=== PATIENT | female | born 1995 | race Caucasian/White ===

== ENCOUNTER 2018-01-29 23:19 | Emergency (ER) | payer OTHER ==
[~2018-01-29] VITALS: Ht 172.7 cm; Wt 84.0 kg
[2018-01-29 23:23] VITALS: TEMP 36.5; Ht 172.7 cm; Wt 84.0 kg
[2018-01-29] MEDS ORDERED: SODIUM CHLORIDE 0.9% 1000ML 1,000 ML IV STA (23:44)
[2018-01-29] MEDS ORDERED: MoRPHine SULFATE 4 MG/ML 1 ML CARP\\VIAL IV STA (23:44)
[2018-01-29] MEDS ORDERED: ONDANSETRON INJ 2 MG/ML 2 ML VIAL IV STA (23:44)
--- NOTE | 2018-01-29 23:53 | EMERGENCY ROOM VISIT NOTE ---
History Report prepared by Brett: Nathalia Yang Under the Supervision of: Dr. Shannan Duvall M.D. First contact with patient: 23:31 Chief Complaint: ABDOMINAL PAIN Stated Complaint: ABDOMINAL PAIN History of Present Illness The patient is a 23 year old female who presents to the Emergency Room with complaints of constant severe left sided chest pain since yesterday. She states that her pain initially began with abdominal pain then migrated to her chest. She states that she was in a car for four hours [employer]. She notes the pain is worsened with deep breathing and lying down. She reports pain and swelling in left leg. She denies any cough. She denies any abdominal pain. She believes paint fumes caused her pain. She states that she was painting furniture yesterday. Per boyfriend, the patient last painted furniture several months ago. She reports smoking marijuana. She uses the Nuva ring for control. She has a history of hypothyroidism and asthma. Source of History: patient Onset: since yesterday Position: chest (left sided) Symptom Intensity: severe Timing: constant Modifying Factors (Worsening): rest (lying down), breathing (deep) Associated Symptoms: No cough, No abdominal pain Note: Notes left leg pain and swelling. Notes recent long distant trip. Review of Systems See HPI for pertinent positives & negatives. A total of 10 systems reviewed and were otherwise negative. Past Medical & Surgical Medical Problems: (1) Asthma (2) Hypothyroidism Surgical Problems: (1) H/O wisdom tooth extraction Family History Heart disease Social History Smoking Status: Never Smoker Smokeless Tobacco Use: No Alcohol Use: occasionally Drug Use: marijuana Marital Status: in relationship Housing Status: lives with significant other Occupation Status: employed Current/Historical Medications Scheduled Apixaban (Eliquis), 10 MG PO BID Citalopram Hydrobromide (Citalopram Hydrobromide), Unknown Dose PO DAILY Levothyroxine Sodium (Levothyroxine Sodium), Unknown Dose PO DAILY Scheduled PRN Hydrocodone/Acetaminophen 5MG/325MG (Sheffield 5MG/325MG), 1 TABLET PO Q4-6 hrs PRN for Pain Allergies Coded Allergies: BEE STING (Verified Allergy, Unknown, unk, 01/30/18) Physical Exam Vital Signs Date Time Temp Pulse Resp B/P (MAP) Pulse Ox O2 Delivery O2 Flow Rate FiO2 01/30/18 04:24 85 18 155/84 94 01/30/18 03:34 86 18 139/67 94 Room Air 01/30/18 02:24 91 18 135/83 96 Room Air 01/29/18 23:50 94 01/29/18 23:23 36.5 106 21 136/76 98 Room Air Physical Exam Vital signs reviewed. General: Well-appearing anxious, tearful, holding ice packs to anterior left chest, in no significant distress. HEENT: No scleral icterus, PERRLA, neck supple. Atraumatic. Cardiovascular: Regular rate and rhythm, no extra sounds. Pulmonary: Clear to auscultation bilaterally, normal work of breathing. Splinting with deep inspiration. Abdomen: Soft, nontender, nondistended, positive bowel sounds. Musculoskeletal: Atraumatic, no appreciable edema to bilateral LE. No reproducible tenderness with palpation to left chest wall. Neurologic: Patient awake alert and oriented x 3 Skin: Warm, dry, no rash Medical Decision & Procedures ER Provider Diagnostic Interpretation: Radiology results as stated below per my review and interpretation: CHEST XR: Reveals a lack of deep inspiration. Scoliosis of the thoracic spine. No significant pulmonary infiltrate or pleural effusion. No pneumothorax. Radiology results as stated below per my review and radiologist interpretation: CTA CHEST: Positive for segmental/subsegmental PE at the left lower lobe posteriorly. No saddle embolism. No definite right heart strain by CT. No pulmonary infarct. Small area of airspace disease at the inferior lingual. Consider atelectasis versus infiltrate. Subsegmental atelectasis suspected at the inferior aspect of the left lower lobe. No other consolidation. No pleural effusion or pneumothorax. No adenopathy. Heart size is normal. Aorta is unremarkable. Radiologist: Carlos Fajardo MD Study ready at 01:10 and initial results transmitted at 01:47 US VENOUS BILATERAL EXTREMITIES: No DVT. No masses or adenopathy. No priors Radiologist: Carlos Fajardo MD Study ready at 03:27 and initial results transmitted at 04:01 Laboratory Results 01/29/18 23:50 Red Blood Count 4.92, Mean Corpuscular Volume 87.2, Mean Corpuscular Hemoglobin 29.3, Mean Corpuscular Hemoglobin Concent 33.6, Mean Platelet Volume 10.0, Neutrophils (%) (Auto) 55.9, Lymphocytes (%) (Auto) 36.3, Monocytes (%) (Auto) 5.9, Eosinophils (%) (Auto) 1.5, Basophils (%) (Auto) 0.1, Neutrophils # (Auto) 8.19, Lymphocytes # (Auto) 5.31, Monocytes # (Auto) 0.86, Eosinophils # (Auto) 0.22, Basophils # (Auto) 0.02 01/29/18 23:50 Test 01/29/18 23:50 01/29/18 23:55 01/30/18 02:04 White Blood Count 14.64 K/uL (4.8-10.8) Red Blood Count 4.92 M/uL (4.2-5.4) Hemoglobin 14.4 g/dL (12.0-16.0) Hematocrit 42.9 % (37-47) Mean Corpuscular Volume 87.2 fL (80-100) Mean Corpuscular Hemoglobin 29.3 pg (25-34) Mean Corpuscular Hemoglobin Concent 33.6 g/dl (32-36) Platelet Count 266 K/uL (130-400) Mean Platelet Volume 10.0 fL (7.4-10.4) Neutrophils (%) (Auto) 55.9 % Lymphocytes (%) (Auto) 36.3 % Monocytes (%) (Auto) 5.9 % Eosinophils (%) (Auto) 1.5 % Basophils (%) (Auto) 0.1 % Neutrophils # (Auto) 8.19 K/uL (1.4-6.5) Lymphocytes # (Auto) 5.31 K/uL (1.2-3.4) Monocytes # (Auto) 0.86 K/uL (0.11-0.59) Eosinophils # (Auto) 0.22 K/uL (0-0.5) Basophils # (Auto) 0.02 K/uL (0-0.2) RDW Standard Deviation 42.7 fL (36.4-46.3) RDW Coefficient of Variation 13.4 % (11.5-14.5) Immature Granulocyte % (Auto) 0.3 % Immature Granulocyte # (Auto) 0.04 K/uL (0.00-0.02) Toxic Vacuolation 1+ Prothrombin Time 9.9 SECONDS (9.0-12.0) Prothromb Time International Ratio 0.9 (0.9-1.1) Activated Partial Thromboplast Time 26.1 SECONDS (21.0-31.0) Partial Thromboplastin Ratio 1.0 Anion Gap 9.0 mmol/L (3-11) Est Creatinine Clear Calc Drug Dose 98.5 ml/min Estimated GFR () 91.3 Estimated GFR (Non- 78.8 BUN/Creatinine Ratio 9.8 (10-20) Calcium Level 8.7 mg/dl (8.5-10.1) Total Bilirubin 0.4 mg/dl (0.2-1) Direct Bilirubin < 0.1 mg/dl (0-0.2) Aspartate Amino Transf (AST/SGOT) 10 U/L (15-37) Alanine Aminotransferase (ALT/SGPT) 20 U/L (12-78) Alkaline Phosphatase 62 U/L (45-117) Troponin I < 0.015 ng/ml (0-0.045) Total Protein 8.3 gm/dl (6.4-8.2) Albumin 3.6 gm/dl (3.4-5.0) Bedside D-Dimer > 450 ng/mlFEU (0-450) Laboratory results per my review. Medications Administered Medications (Trade) Dose Ordered Sig/Shawn Route Start Time Stop Time Status Last Admin Dose Admin Sodium Chloride 1,000 ml @ 999 mls/hr Q1H1M STAT IV 01/29/18 23:44 01/30/18 00:44 DC 01/30/18 00:02 999 MLS/HR Morphine Sulfate (MoRPHine SULFATE INJ) 4 mg NOW STAT IV 01/29/18 23:44 01/29/18 23:47 DC 01/30/18 00:03 4 MG Ondansetron HCl (Zofran Inj) 4 mg NOW STAT IV 01/29/18 23:44 01/29/18 23:47 DC 01/30/18 00:02 4 MG Morphine Sulfate (MoRPHine SULFATE INJ) 4 mg NOW STAT IV 01/30/18 01:26 01/30/18 01:27 DC 01/30/18 01:39 4 MG Miscellaneous Information (Patient'S Allergy Info Needs Entered) 1 ea NOW STAT N/A 01/30/18 01:33 01/30/18 01:34 DC 01/30/18 01:39 1 EA Heparin Sodium (Porcine) (Heparin Sq 5000 Unit/0.5ml) 10,000 unit STK-MED ONCE .ROUTE 01/30/18 02:10 01/30/18 02:11 DC 01/30/18 02:18 6,000 UNIT Apixaban (Eliquis Tab) 10 mg NOW STAT PO 01/30/18 03:28 01/30/18 03:30 DC 01/30/18 04:18 10 MG Acetaminophen/ Hydrocodone Bitart (Sheffield 5/325 Tab) 1 tab NOW STAT PO 01/30/18 03:43 01/30/18 03:45 DC 01/30/18 03:55 1 TAB Acetaminophen/ Hydrocodone Bitart (Sheffield 5/325mg Home Pack) 1 homepack UD ONCE PO 01/30/18 04:00 01/30/18 04:01 DC 01/30/18 04:18 1 HOMEPACK Ketorolac Tromethamine (Toradol Inj) 30 mg NOW STAT IV 01/30/18 04:05 01/30/18 04:06 DC 01/30/18 04:10 30 MG ECG Per My Interpretation Indication: chest pain Rate (beats per minute): 88 Rhythm: normal sinus Findings: no acute ischemic change, no ectopy, other (Poor quality baseline for interpretation. QTC 450. ) ED Course 7: Past medical records reviewed. The patient was evaluated in room C3. A complete history and physical examination was performed. 2344: Ordered Zofran 4 mg IV, Morphine Sulfate 4 mg IV, and Sodium Chloride 1, 000 ml @ 999 mls/hr IV 0126: Ordered Morphine Sulfate 4 mg IV 0148: I reassessed the patient at this time. Her pain has improved. She is resting. She removed her Nuva ring on the bed. 0210: Ordered Heparin Bolus IV 0222: I spoke with LAVERNE Bronson hospitalist. We discussed the patient's case. He evaluated the patient. He is requesting a lower extremity US. 0250: The patient was moved to room B11B. 0328: Ordered Eliquis 10 mg PO 0329: I spoke with LAVERNE Bronson hospitalist. The US showed no DVT. He recommends the patient be discharged home. 0338: I reassessed the patient at this time. She is feeling better and resting comfortably. I discussed the results and treatment plan with the patient. I answered all pertaining questions that she had. She expressed understanding and verbalized agreement. The patient will be discharged home. 0343: Ordered Sheffield 1 tab PO 0400: Ordered Sheffield 1 homepack PO Medical Decision Differential diagnoses includes acute coronary syndrome, pulmonary embolus, aortic dissection, musculoskeletal pain, pneumonia, pleural effusion, pneumothorax, gastritis, peptic ulcer disease. This patient was evaluated and appeared to be in significant discomfort. IV access was obtained and laboratory work was drawn. Patient was placed on the straddle bug and found to be in a sinus tachycardia. She was hydrated with normal saline solution and given IV morphine/Zofran for her discomfort. Patient is noted to have a normal EKG, elevated d-dimer on laboratory evaluation. Cardiac enzymes are normal. Patient did receive a second dose of IV morphine for her pain. CT angiogram of the chest was performed and is significant for left lower segmental and subsegmental PE. Hypercoagulable workup was ordered. The patient was given a dose of IV heparin and IV heparin drip was anticipated. Consultation with the hospitalist, Dr. Hill was placed. He requested ultrasounds of bilateral lower extremities, which were performed and are negative. The patient was given p.o. Sheffield. She was started on Eliquis 10 mg twice daily 7 days, 5 mg twice daily thereafter. Prescriptions were sent to the pharmacy, patient was given a home pack of both Sheffield and Eliquis. Patient was discharged by Dr. Hill. Patient expressed an understanding of the instructions and agreed. She will contact her visualization developer , Dr. Browning as soon as possible for follow up. Medication Reconcilliation Current Medication List: was personally reviewed by me Blood Pressure Screening Patient's blood pressure: Elevated blood pressure Blood pressure disposition: Referred to PCP Consults Time Called: 221 Consulting Physician: LAVERNE Bronson hospitalist I spoke with LAVERNE Bronson hospitalist. We discussed the patient's case. He evaluated the patient. He is requesting a lower extremity US. 0329: I spoke with LAVERNE Bronson hospitalist. The US showed no DVT. He recommends the patient be discharged home. Impression Primary Impression: Pulmonary embolism on left Scribe Attestation The scribe's documentation has been prepared under my direction and personally reviewed by me in its entirety. I confirm that the note above accurately reflects all work, treatment, procedures, and medical decision making performed by me. Departure Information Dispostion Home / Self-Care Prescriptions Hydrocodone/Acetaminophen 5MG/325MG (Sheffield 5MG/325MG) Tab 1 TABLET PO Q4-6 hrs Y for Pain for 7 Days, #14 TAB Prov: Shannan Duvall M.D. 01/30/18 Apixaban (ELIQUIS) 5 Mg Tab 10 MG PO BID for 7 Days, #28 TAB 10 mg twice daily for 7 days, 5 mg twice daily thereafter Prov: Shannan Duvall M.D. 01/30/18 Referrals No Doctor, Assigned (PCP) Alonso Browning D.O. Forms HOME CARE DOCUMENTATION FORM, IMPORTANT VISIT INFORMATION Patient Instructions Apixaban oral tablets, Embolism Pulmonary, My [facility] Additional Instructions Diagnosis: Left-sided pulmonary embolism Eliquis 10 mg twice daily for 7 days, then 5 mg daily thereafter. You will likely be on this medication for 3 months or more. Sheffield 1 tab every 4-6 hours as needed for pain, do not drive or take tylenol with this medication. Stop the NuvaRing immediately. Please consult AXLE POLISHER as soon as possible regarding control options. In the meantime please use latex condoms. Return to the emergency department for worsening of symptoms or any medical concerns.
[2018-01-29 23:59] LABS: HEMATOCRIT 42.9 % (37-47); HEMOGLOBIN 14.4 g/dL (12.0-16.0); MEAN CELL VOLUME 87.2 fL (80-100); MEAN CORPUSCULAR HEMOGLOBIN 29.3 pg (25-34); MEAN CORPUSCULAR HGB CONC 33.6 g/dl (32-36); PLATELET COUNT 266 K/uL (130-400); RED CELL DISTRIBUTION WIDTH CV 13.4 % (11.5-14.5); RED CELL DISTRIBUTION WIDTH SD 42.7 fL (36.4-46.3); WHITE BLOOD COUNT 14.64 K/uL (4.8-10.8)
[2018-01-30] MEDS ORDERED: LEVO25TA5 PO (00:02)
[2018-01-30] MEDS ORDERED: CITA20TA4 PO (00:03)
[2018-01-30 00:15] LABS: INR 0.9 (0.9-1.1); PTT PATIENT 26.1 SECONDS (21.0-31.0)
[2018-01-30 00:19] LABS: ALBUMIN 3.6 gm/dl (3.4-5.0); ALT/SGPT 20 U/L (12-78); AST/SGOT 10 U/L (15-37); BLOOD UREA NITROGEN 10 mg/dl (7-18); CALCIUM 8.7 mg/dl (8.5-10.1); CARBON DIOXIDE 25 mmol/L (21-32); GLUCOSE 90 mg/dl (70-99); POTASSIUM 3.5 mmol/L (3.5-5.1); SODIUM 137 mmol/L (136-145)
[2018-01-30 00:24] LABS: ALKALINE PHOSPHATASE 62 U/L (45-117); TOTAL PROTEIN 8.3 gm/dl (6.4-8.2)
[2018-01-30 00:50] LABS: BASO % 0.1 %; BASO ABS # 0.02 K/uL (0-0.2); EOS % 1.5 %; EOS ABS # 0.22 K/uL (0-0.5); IG# 0.04 K/uL (0.00-0.02); LYMPH % 36.3 %; LYMPH ABS # 5.31 K/uL (1.2-3.4); MONO % 5.9 %; MONO ABS # 0.86 K/uL (0.11-0.59); NEUT % 55.9 %; NEUT ABS # 8.19 K/uL (1.4-6.5)
[2018-01-30] MEDS ORDERED: OPTIRAY 320 IV PRN (01:15)
[2018-01-30] MEDS ORDERED: MoRPHine SULFATE 4 MG/ML 1 ML CARP\\VIAL IV STA (01:26)
[2018-01-30] MEDS ORDERED: PATIENT'S ALLERGY INFO NEEDS ENTERED STA (01:33)
[2018-01-30] MEDS ORDERED: HEPARIN 25000 UNIT/500 ML D5W ONE (02:10)
[2018-01-30] MEDS ORDERED: HEPARIN SOD 5000 UNIT/0.5 ML CARP ONE (02:10)
--- NOTE | 2018-01-30 02:58 | Medical Consult ---
Consultation Date of Consultation: Jan 30, 2018. Attending Physician: History of Present Illness 23 y/o F Hx Hypothyroidism, depression/anxiety. The pt has had swelling and pain in her LLE for a few weeks. She developed L sided pleuritic CP the previous evening which gradually worsened prompting her to visit the ER. She was sent for a CTA which confirmed a LLL segmental PE. She has not exhibited hypoxia or tachycardia. She uses a Nuvaring for control. She smokes marijuana regularly but does not smoke cigarettes. Past Medical/Surgical History 1) Hypothyroidism 2) Anxiety/depression 3) PTSD Family History Heart disease Mother has porphyria - unspecified type Social History Smokes marijuana - social ETOH - she is currently earning a PHD in biochemistry Smoking Status: Never Smoker Smokeless Tobacco Use: No Drug Use: marijuana Marital Status: in relationship Housing Status: lives with significant other Occupation Status: employed Allergies Coded Allergies: BEE STING (Verified Allergy, Unknown, unk, 01/30/18) Current Inpatient Medications Current Inpatient Medications Medications (Trade) Dose Ordered Sig/Shawn Route Start Time Stop Time Status Last Admin Dose Admin Ioversol (Optiray 320) 94 ml UD PRN IV 01/30/18 01:15 02/03/18 01:14 Review of Systems Constitutional: No fever, No chills, No sweats Eyes: No worsening of vision ENT: No hearing loss, No unusual epistaxis, No nasal symptoms Respiratory: + shortness of breath, No cough, No wheezing Cardiovascular: + chest pain (PLeuritic) Abdomen: No pain, No nausea, No vomiting Musculoskeletal: No joint pain Genitourinary - Female: No dysuria, No urinary frequency Neurologic: No memory loss, No paralysis, No weakness Psychiatric: + depression symptoms Endocrine: No fatigue Hematologic / Lymphatic: No abnormal bleeding/bruising Integumentary: No rash Allergic / Immunologic: No environmental allergies Physical Exam Date Time Temp Pulse Resp B/P (MAP) Pulse Ox O2 Delivery O2 Flow Rate FiO2 01/30/18 02:24 91 18 135/83 96 Room Air 01/29/18 23:50 94 01/29/18 23:23 36.5 106 21 136/76 98 Room Air General Appearance: WD/WN, + pertinent finding (Emotionally distressed young female - does not exhibit tachypnea or physical distress) Head: normocephalic Eyes: normal inspection ENT: normal ENT inspection, pharynx normal Neck: supple, no JVD Respiratory/Chest: chest non-tender, lungs clear, normal breath sounds, + pertinent finding (Inspiratory effort was limited by pain) Cardiovascular: regular rate, rhythm, no edema, no gallop Abdomen/GI: normal bowel sounds Back: normal inspection, no CVA tenderness Extremities/Musculoskelatal: normal inspection, no calf tenderness, normal capillary refill Neurologic/Psych: fresh work wrapper layer II-XII nml as tested, no motor/sensory deficits, alert, oriented x 3 Skin: normal color Laboratory Results Last 24 Hours Test 01/29/18 23:50 01/29/18 23:55 01/30/18 02:04 White Blood Count 14.64 K/uL Red Blood Count 4.92 M/uL Hemoglobin 14.4 g/dL Hematocrit 42.9 % Mean Corpuscular Volume 87.2 fL Mean Corpuscular Hemoglobin 29.3 pg Mean Corpuscular Hemoglobin Concent 33.6 g/dl Platelet Count 266 K/uL Mean Platelet Volume 10.0 fL Neutrophils (%) (Auto) 55.9 % Lymphocytes (%) (Auto) 36.3 % Monocytes (%) (Auto) 5.9 % Eosinophils (%) (Auto) 1.5 % Basophils (%) (Auto) 0.1 % Neutrophils # (Auto) 8.19 K/uL Lymphocytes # (Auto) 5.31 K/uL Monocytes # (Auto) 0.86 K/uL Eosinophils # (Auto) 0.22 K/uL Basophils # (Auto) 0.02 K/uL RDW Standard Deviation 42.7 fL RDW Coefficient of Variation 13.4 % Immature Granulocyte % (Auto) 0.3 % Immature Granulocyte # (Auto) 0.04 K/uL Toxic Vacuolation 1+ Prothrombin Time 9.9 SECONDS Prothromb Time International Ratio 0.9 Activated Partial Thromboplast Time 26.1 SECONDS Partial Thromboplastin Ratio 1.0 Sodium Level 137 mmol/L Potassium Level 3.5 mmol/L Chloride Level 104 mmol/L Carbon Dioxide Level 25 mmol/L Anion Gap 9.0 mmol/L Blood Urea Nitrogen 10 mg/dl Creatinine 1.00 mg/dl Est Creatinine Clear Calc Drug Dose 98.5 ml/min Estimated GFR () 91.3 Estimated GFR (Non- 78.8 BUN/Creatinine Ratio 9.8 Random Glucose 90 mg/dl Calcium Level 8.7 mg/dl Total Bilirubin 0.4 mg/dl Direct Bilirubin < 0.1 mg/dl Aspartate Amino Transf (AST/SGOT) 10 U/L Alanine Aminotransferase (ALT/SGPT) 20 U/L Alkaline Phosphatase 62 U/L Troponin I < 0.015 ng/ml Total Protein 8.3 gm/dl Albumin 3.6 gm/dl Bedside D-Dimer > 450 ng/mlFEU Assessment & Plan 23 y/o F Hx Hypothyroidism, depression/anxiety. The pt has had swelling and pain in her LLE for a few weeks. She developed L sided pleuritic CP the previous evening which gradually worsened prompting her to visit the ER. She was sent for a CTA which confirmed a LLL segmental PE. She has not exhibited hypoxia or tachycardia. She uses a Nuvaring for control. She smokes marijuana regularly but does not smoke cigarettes. 1) PE - the pt would qualify for outpt treatment with an poral anticoagulant. We have informed her that she will need follow-up with a clinical appeals specialist to assess for genetic predisposition. She has been advised to discontinue her Nuvaring which she promptly removed and disposed of. We are pending a LE doppler to assess potential clot burden. 2) Hypothyroidism - cont Synthroid as prescribed. 3) Depression/anxiety - cont Citalopram. Total time for this consult including review of labs, meds, imaging, records - discussion with pt and ER attending - 33 min Addendum: No DVT seen - DC plan formulated with ER attendnig
[2018-01-30] MEDS ORDERED: APIX1TAB3 PO (03:04)
[2018-01-30] MEDS ORDERED: APIXABAN 2.5 MG TAB PO STA (03:28)
[2018-01-30] MEDS ORDERED: HYDROCODONE/ACETAMIN 5/325MG TAB PO STA (03:43)
[2018-01-30] MEDS ORDERED: HYDR-5688 PO (03:53)
[2018-01-30] MEDS ORDERED: NORCO 5/325MG HOME PACK PO ONE (04:00)
[2018-01-30] MEDS ORDERED: KETOROLAC TROMETHAMINE 30 MG/ML VIAL IV STA (04:05)
[2018-01-30 04:24] VITALS: BP 155/84; PULSE 85; O2SAT 94
--- NOTE | 2018-01-30 06:43 | DIAGNOSTIC IMAGING REPORT ---
CHEST ONE VIEW PORTABLE HISTORY: 23 years-old Female L CP acute atypical chest pain COMPARISON: CTA of the chest 01/30/2018 TECHNIQUE: Portable AP view of the chest FINDINGS: Cardiac silhouette is within normal limits. There is no pneumothorax. Trace left pleural effusion with patchy subsegmental alveolar opacities of the left lung base. Right lung is clear. No overt pulmonary edema. Mild convex right curvature of the midthoracic spine. Bones appear grossly intact. IMPRESSION: Trace left pleural effusion with patchy subsegmental left basilar consolidative opacities suggesting atelectasis or pneumonitis. The above report was generated using voice recognition software. It may contain grammatical, syntax or spelling errors. Electronically signed by: Ramiro Acosta M.D. 01/30/2018 6:42 AM Dictated Date/Time: 01/30/2018 6:40 AM
--- NOTE | 2018-01-30 06:47 | DIAGNOSTIC IMAGING REPORT ---
BILATERAL LOWER EXTREMITY VENOUS DOPPLER CLINICAL HISTORY: Pulmonary emboli. COMPARISON STUDY: No previous studies for comparison. TECHNIQUE: Sonography of the deep venous system of the bilateral lower extremities was performed. Compression and augmentation were evaluated. FINDINGS: The bilateral common femoral, superficial femoral and popliteal veins were compressible. Augmentation was normal. Flow was shown within the deep calf vessels. IMPRESSION: No evidence of deep venous thrombus within the bilateral lower extremities. Electronically signed by: Raul Adair M.D. 01/30/2018 6:46 AM Dictated Date/Time: 01/30/2018 6:45 AM
--- NOTE | 2018-01-30 07:06 | DIAGNOSTIC IMAGING REPORT ---
(CHEST FOR PE) ANGIO WITH CT DOSE: 565.22 mGy.cm HISTORY: 23 years-old Female presents with acute atypical chest pain and left basilar opacities seen on recent chest radiograph TECHNIQUE: Multiple CTA images of the chest were obtained after the intravenous administration of 94 ml Optiray 320. Coronal and sagittal MIPS were obtained from the axial data set and were submitted for review. A dose lowering technique was utilized adhering to the principles of ALARA. COMPARISON: Chest radiograph 01/29/2018, duplex venous Doppler study 01/30/2018 FINDINGS: CTA: Heart is normal in size without pericardial effusion. Thoracic aorta is normal in both course and caliber without aneurysm or dissection identified. The imaged great vessels appear to be patent. Pulmonary arterial tree is opacified to the distal segmental and proximal subsegmental branches. There are multiple pulmonary emboli noted within segmental and subsegmental branches within the bilateral upper and lower lobes and right middle lobe. No definite central pulmonary embolus identified. There is no evidence of right heart strain. CT CHEST: No dominant thyroid nodule or pathologic adenopathy. Trace left pleural effusion. No pneumothorax. Minimal dependent subsegmental right basilar atelectasis. There are patchy consolidative opacities within the basal left lower lobe and inferior segment lingula. No definite pulmonary infarction identified. Central airways are patent. No gross abnormality of the imaged upper abdomen. The soft tissues are within normal limits. Breast parenchyma appears to be within normal limits. The bones appear intact. Dextroscoliosis of the midthoracic spine. IMPRESSION: 1. Multiple pulmonary emboli are seen bilaterally involving segmental and subsegmental branches of the bilateral upper and lower lobes and right middle lobe. No evidence of right heart strain. 2. Trace left pleural effusion with patchy multifocal subsegmental alveolar opacities of the inferior segment lingula and basal left lower lobe suggesting associated atelectasis or pneumonitis. No definite pulmonary infarction identified. The above report was generated using voice recognition software. It may contain grammatical, syntax or spelling errors. Electronically signed by: Ramiro Acosta M.D. 01/30/2018 7:04 AM Dictated Date/Time: 01/30/2018 6:55 AM
[2018-02-02 15:35] LABS: ANTICARDIOLIPID AB IGA <11 APL (< = 11)
== END 2018-01-30 04:26 | disposition home or self-care (01) ==
LOC: C.EDB 23:20
DX: I26.99 Other pulmonary embolism without acute cor pulmonale (principal); J45.909 Unspecified asthma, uncomplicated; E03.9 Hypothyroidism, unspecified; F32.9 Major depressive disorder, single episode, unspecified; F41.9 Anxiety disorder, unspecified; Z98.818 Other dental procedure status; Z91.030 Bee allergy status; Z83.49 Family history of other endocrine, nutritional and metabolic diseases; Z79.899 Other long term (current) drug therapy

== ENCOUNTER 2018-02-22 08:06 | Emergency (ER) | payer OTHER ==
[~2018-02-22] VITALS: Ht 172.7 cm; Wt 84.9 kg
[~2018-02-22 08:06] MED LIST: CITA20TA4 PO; LEVO25TA5 PO
[2018-02-22 08:12] VITALS: TEMP 36.9; Ht 172.7 cm; Wt 84.9 kg
[2018-02-22] MEDS ORDERED: CYAN1LOZ PO (08:43)
[2018-02-22] MEDS ORDERED: LIDODERM (LIDOCAINE) PATCH 5% TD STA (08:51)
[2018-02-22 09:00] VITALS: O2SAT 99
[2018-02-22 09:11] LABS: BASO % 0.5 %; BASO ABS # 0.04 K/uL (0-0.2); EOS % 2.2 %; EOS ABS # 0.19 K/uL (0-0.5); HEMOGLOBIN 14.2 g/dL (12.0-16.0); IG# 0.01 K/uL (0.00-0.02); LYMPH % 41.3 %; LYMPH ABS # 3.55 K/uL (1.2-3.4); MEAN CELL VOLUME 86.1 fL (80-100); MEAN CORPUSCULAR HEMOGLOBIN 29.1 pg (25-34); MEAN CORPUSCULAR HGB CONC 33.8 g/dl (32-36); MEAN PLATELET VOLUME 9.9 fL (7.4-10.4); MONO % 7.9 %; MONO ABS # 0.68 K/uL (0.11-0.59); NEUT ABS # 4.12 K/uL (1.4-6.5); PLATELET COUNT 284 K/uL (130-400); RED CELL DISTRIBUTION WIDTH CV 13.5 % (11.5-14.5); RED CELL DISTRIBUTION WIDTH SD 42.5 fL (36.4-46.3); WHITE BLOOD COUNT 8.59 K/uL (4.8-10.8)
[2018-02-22 09:29] LABS: INR 0.9 (0.9-1.1); PTT PATIENT 25.9 SECONDS (21.0-31.0)
[2018-02-22 09:32] LABS: ALBUMIN 3.8 gm/dl (3.4-5.0); ALKALINE PHOSPHATASE 71 U/L (45-117); ALT/SGPT 33 U/L (12-78); AST/SGOT 20 U/L (15-37); BLOOD UREA NITROGEN 15 mg/dl (7-18); CALCIUM 8.9 mg/dl (8.5-10.1); CARBON DIOXIDE 25 mmol/L (21-32); CREATININE 0.92 mg/dl (0.60-1.20); GLUCOSE 89 mg/dl (70-99); POTASSIUM 3.9 mmol/L (3.5-5.1); SODIUM 139 mmol/L (136-145); TOTAL PROTEIN 7.8 gm/dl (6.4-8.2)
--- NOTE | 2018-02-22 09:46 | DIAGNOSTIC IMAGING REPORT ---
CHEST 2 VIEWS ROUTINE HISTORY: 23 years-old Female dyspnea, chest pain acute atypical chest pain COMPARISON: Chest radiograph 01/29/2018 TECHNIQUE: PA and lateral views of the chest FINDINGS: Cardiomediastinal and hilar silhouettes are within normal limits. There is no pneumothorax, pleural effusion, focal airspace consolidation or overt pulmonary edema. The bones of the chest appear grossly intact. IMPRESSION: No acute process. The above report was generated using voice recognition software. It may contain grammatical, syntax or spelling errors. Electronically signed by: Ramiro Acosta M.D. 02/22/2018 9:44 AM Dictated Date/Time: 02/22/2018 9:43 AM
[2018-02-22] MEDS ORDERED: LIDO1PAD2 TD (10:02)
--- NOTE | 2018-02-22 10:07 | EMERGENCY ROOM VISIT NOTE ---
History First contact with patient: 08:10 Chief Complaint: RESPIRATORY PROBLEMS Stated Complaint: PAIN NEAR RIBS WHEN BREATHING Nursing Triage Summary: Patient presents ambulatory to triage stating "It hurts when I take a breath" Patient was diagnosed 01/29/18 with pulmonary emboli, started on Eliquis at that time States she has been compliant with medication She notes that she began having bilateral lower rib pain when taking a deep breath 02/21/18 States she did have increased activity 02/21/18 - she walked a few miles She has not taken any medication for the pain but has smoke marijuana without relief of symptoms States deep breathing increases pain States she is also having left leg pain Her mother has a history of Cole Danlos syndrome and patient has concerns this may be affecting her as well History of Present Illness The patient is a 23 year old female who presents to the Emergency Room with complaints of bilateral chest wall pain and dyspnea. The patient states she has a history of pulmonary emboli which were diagnosed approximately 1 month ago. She has been having pain intermittently since this time. The patient was walking several miles yesterday, and states the pain worsened after this. She is taken no medications for her symptoms, however has been smoking marijuana and making "edibles" which have been helping with her pain on occasion. The patient states the pain is worse with deep inhalation. She denies any recent illness, fever, cough. She denies any chest pain or dyspnea. The patient denies any urinary symptoms. She was on a NuvaRing, but had to discontinue that due to the pulmonary emboli. She is also complaining of a rash on her bilateral legs and torso. She states she is working with her PCP, however is uncertain as to the cause of the rash. She has not seen dermatology. She is following with a medication care manager, and is currently taking Eliquis. The patient does report a history of severe anxiety and PTSD. Review of Systems A complete 10 point review of systems was reviewed with the patient with pertinent positives and negatives as per history of present illness. All else were negative. Past Medical/Surgical History Medical Problems: (1) Asthma (2) Hypothyroidism Surgical Problems: (1) H/O wisdom tooth extraction Family History Heart disease Social History Smoking Status: Current Every Day Smoker Alcohol Use: occasionally Drug Use: marijuana Marital Status: in relationship Housing Status: lives with significant other Occupation Status: employed Current/Historical Medications Scheduled Citalopram Hydrobromide (Citalopram Hydrobromide), 1 DOSE PO DAILY Cyanocobalamin (Vitamin B 12), 1 DOSE PO DAILY Levothyroxine Sodium (Levothyroxine Sodium), 1 DOSE PO DAILY Scheduled PRN Lidocaine (Lidocaine), 1 PATCH TD QD PRN for Pain Physical Exam Vital Signs Date Time Temp Pulse Resp B/P (MAP) Pulse Ox O2 Delivery O2 Flow Rate FiO2 02/22/18 11:11 89 14 151/87 99 Room Air 02/22/18 09:23 76 02/22/18 09:15 76 20 122/84 98 Room Air 02/22/18 09:00 99 Room Air 02/22/18 08:17 97 Room Air 02/22/18 08:12 36.9 94 18 142/87 96 Room Air Physical Exam VITALS: Vitals are noted on the nurse's note and reviewed by myself. Vital signs stable. GENERAL: This is a 23-year-old white female, in no acute distress, nondiaphoretic, well-developed well-nourished. SKIN: Erythematous, linear skin lesions on the areas with skin folds such as the groin, posterior knee, and abdomen. There are no excoriations. There is no drainage or surrounding erythema. The skin was otherwise without rashes, erythema, edema, or bruising. There is no tenting of the skin. Capillary reflex less than 2 seconds. HEAD: Normocephalic atraumatic. EARS: External auditory canals clear, tympanic membranes pearly luna without erythema or effusion bilaterally. EYES: Pupils equal round and reactive to light and accommodation. Conjunctivae without injection, sclerae without icterus. Extraocular movements intact. NOSE: Patent, turbinates without inflammation or discharge. No sinus tenderness. MOUTH: Mucous membranes moist. Tonsils are not enlarged. Pharynx without erythema or exudate. Uvula midline. Airway patent. Tongue does not deviate. NECK: Supple without nuchal rigidity. No lymphadenopathy. No thyromegaly. Cervical spine is nontender. No JVD. HEART: Regular rate and rhythm without murmurs gallops or rubs. LUNGS: Clear to auscultation bilaterally without wheezes, rales or rhonchi. No dullness to percussion. No retractions or accessory muscle use. ABDOMEN: Positive bowel sounds x 4. Normal tympanic percussion. Soft, nontender, without masses or organomegaly. Edwards sign negative. No guarding or rebound tenderness. MUSCULOSKELETAL: No muscle atrophy, erythema, or edema noted. Full range of motion without joint tenderness in all extremities. No tenderness to palpation. No chest wall tenderness to palpation. Normal gait. Strength 5/5 throughout. NEURO: Patient was alert and oriented to person place and time. Normal sensation to light and sharp touch. Deep tendon reflexes 2+ throughout. No focal neurological deficits. Negative Romberg and Pronator Drift. Medical Decision & Procedures ER Provider Diagnostic Interpretation: CHEST 2 VIEWS ROUTINE HISTORY: 23 years-old Female dyspnea, chest pain acute atypical chest pain COMPARISON: Chest radiograph 01/29/2018 TECHNIQUE: PA and lateral views of the chest FINDINGS: Cardiomediastinal and hilar silhouettes are within normal limits. There is no pneumothorax, pleural effusion, focal airspace consolidation or overt pulmonary edema. The bones of the chest appear grossly intact. IMPRESSION: No acute process. The above report was generated using voice recognition software. It may contain grammatical, syntax or spelling errors. Electronically signed by: Ramiro Acosta M.D. 02/22/2018 9:44 AM HEAD WITHOUT CONTRAST (CT) CLINICAL HISTORY: 23 years-old Female with memory lapse, dizziness. Acute dizziness with memory loss TECHNIQUE: Multiple axial CT images of the head were obtained without contrast. A dose lowering technique was utilized adhering to the principles of ALARA. CT DOSE: 729.78 mGycm COMPARISON: None. FINDINGS: No acute intracranial hemorrhage, midline shift, intracranial mass, hydrocephalus, territorial ischemia or abnormal extra-axial collection. The calvarium is intact. The paranasal sinuses, mastoid air cells, and middle ear cavities are clear. IMPRESSION: No acute intracranial abnormality. The above report was generated using voice recognition software. It may contain grammatical, syntax or spelling errors. Electronically signed by: Ramiro Acosta M.D. 02/22/2018 11:55 AM Dictated Date/Time: 02/22/2018 11:53 AM Laboratory Results 02/22/18 09:00 Red Blood Count 4.88, Mean Corpuscular Volume 86.1, Mean Corpuscular Hemoglobin 29.1, Mean Corpuscular Hemoglobin Concent 33.8, Mean Platelet Volume 9.9, Neutrophils (%) (Auto) 48.0, Lymphocytes (%) (Auto) 41.3, Monocytes (%) (Auto) 7.9, Eosinophils (%) (Auto) 2.2, Basophils (%) (Auto) 0.5, Neutrophils # (Auto) 4.12, Lymphocytes # (Auto) 3.55, Monocytes # (Auto) 0.68, Eosinophils # (Auto) 0.19, Basophils # (Auto) 0.04 02/22/18 09:00 Test 02/22/18 09:00 White Blood Count 8.59 K/uL (4.8-10.8) Red Blood Count 4.88 M/uL (4.2-5.4) Hemoglobin 14.2 g/dL (12.0-16.0) Hematocrit 42.0 % (37-47) Mean Corpuscular Volume 86.1 fL (80-100) Mean Corpuscular Hemoglobin 29.1 pg (25-34) Mean Corpuscular Hemoglobin Concent 33.8 g/dl (32-36) Platelet Count 284 K/uL (130-400) Mean Platelet Volume 9.9 fL (7.4-10.4) Neutrophils (%) (Auto) 48.0 % Lymphocytes (%) (Auto) 41.3 % Monocytes (%) (Auto) 7.9 % Eosinophils (%) (Auto) 2.2 % Basophils (%) (Auto) 0.5 % Neutrophils # (Auto) 4.12 K/uL (1.4-6.5) Lymphocytes # (Auto) 3.55 K/uL (1.2-3.4) Monocytes # (Auto) 0.68 K/uL (0.11-0.59) Eosinophils # (Auto) 0.19 K/uL (0-0.5) Basophils # (Auto) 0.04 K/uL (0-0.2) RDW Standard Deviation 42.5 fL (36.4-46.3) RDW Coefficient of Variation 13.5 % (11.5-14.5) Immature Granulocyte % (Auto) 0.1 % Immature Granulocyte # (Auto) 0.01 K/uL (0.00-0.02) Prothrombin Time 9.7 SECONDS (9.0-12.0) Prothromb Time International Ratio 0.9 (0.9-1.1) Activated Partial Thromboplast Time 25.9 SECONDS (21.0-31.0) Partial Thromboplastin Ratio 1.0 Urine Color YELLOW Urine Appearance CLEAR (CLEAR) Urine pH 5.5 (4.5-7.5) Urine Specific [place] 1.021 (1.000-1.030) Urine Protein NEG (NEG) Urine Glucose (UA) NEG (NEG) Urine Ketones NEG (NEG) Urine Occult Blood TRACE (NEG) Urine Nitrite NEG (NEG) Urine Bilirubin NEG (NEG) Urine Urobilinogen NEG (NEG) Urine Leukocyte Esterase NEG (NEG) Urine WBC (Auto) 1-5 /hpf (0-5) Urine RBC (Auto) 0-4 /hpf (0-4) Urine Hyaline Casts (Auto) 0 /lpf (0-5) Urine Epithelial Cells (Auto) 20-30 /lpf (0-5) Urine Bacteria (Auto) NEG (NEG) Anion Gap 6.0 mmol/L (3-11) Est Creatinine Clear Calc Drug Dose 107.6 ml/min Estimated GFR () 101.0 Estimated GFR (Non- 87.2 BUN/Creatinine Ratio 15.8 (10-20) Calcium Level 8.9 mg/dl (8.5-10.1) Total Bilirubin 0.4 mg/dl (0.2-1) Aspartate Amino Transf (AST/SGOT) 20 U/L (15-37) Alanine Aminotransferase (ALT/SGPT) 33 U/L (12-78) Alkaline Phosphatase 71 U/L (45-117) Troponin I < 0.015 ng/ml (0-0.045) Total Protein 7.8 gm/dl (6.4-8.2) Albumin 3.8 gm/dl (3.4-5.0) Globulin 4.0 gm/dl (2.5-4.0) Albumin/Globulin Ratio 0.9 (0.9-2) Human Chorionic Gonadotropin, Qual NEG (NEG) Urine Opiates Screen NEG (NEG) Urine Methadone, Qualitative NEG (NEG) Urine Barbiturates NEG (NEG) Urine Phencyclidine (PCP) Level NEG (NEG) Ur Amphetamine/Methamphetamine NEG (NEG) MDMA (Ecstasy) Screen NEG (NEG) Urine Benzodiazepines Screen NEG (NEG) Urine Cocaine Metabolite NEG (NEG) Urine Marijuana (THC) POS (NEG) Medications Administered Medications (Trade) Dose Ordered Sig/Shawn Route Start Time Stop Time Status Last Admin Dose Admin Lidocaine (Lidoderm Patch 5%) 1 patch NOW STAT TD 02/22/18 08:51 02/22/18 08:52 DC 02/22/18 09:08 1 PATCH ECG Per My Interpretation Indication: chest pain Rate (beats per minute): 72 Rhythm: normal sinus Findings: no acute ischemic change, no ectopy Comparison ECG Date: 01/29/2018 Change: T wave amplitude has increased in anterior leads, rate has decreased from 88 to 72 ED Course The patient was seen and evaluated as above. IV access obtained, labs drawn. EKG performed and reviewed/interpreted by myself as above. The patient was given a Lidoderm patch. Chest x-ray performed and reviewed by myself and radiologist as above. Labs reviewed. I discussed the findings with the patient at bedside. She is feeling better and feels that the Lidoderm patch has been helpful. I discussed discharge and outpatient follow-up with the patient. She was agreeable. She does request contact information for a different local packer and medication care manager, as she feels that her current providers are not listening to her complaints. Nursing staff notified me that the patient is now complaining of dizziness, memory lapses, and "feeling woozy". I spoke with the patient. I offered to perform a CT scan, as she is concerned for head bleed, as apparently her mother has had similar symptoms and had an intracranial hemorrhage. The patient was agreeable and states she would like to have the CT scan, despite discussion regarding benefits versus risks associated with radiation exposure. The patient refused to have CT scan performed until she had a serum test. I discussed with the patient that the urine tests are almost 100% accurate. She states she had a problem with a condom recently and feels that she needs to have a serum test performed. Serum test ordered. This was negative. CT scan performed and reviewed by myself and radiologist as above. I discussed all findings of testing with the patient at bedside. Discharge instructions reviewed, the patient was discharged home in good condition. Medical Decision This is a 23-year-old, very anxious female patient who presents to the emergency department today complaining of bilateral chest wall pain. The pain has been intermittent for approximately 1 month. She does have a history of bilateral pulmonary emboli. These were diagnosed approximately 1 month ago. Patient states the pain is worse after walking several miles yesterday. The patient also has this nonspecific "rash" which has been ongoing for several months. She has seen her PCP regarding this rash no obvious diagnosis made. She has not seen any dermatology or specialist regarding the rash. She suspects it may be related to her PEs, and states her mother has a history of Cole Danlos syndrome and is concerned that her symptoms could be related to this genetic disorder. She has no history of joint problems. While here in the emergency department, the patient's lab workup did not reveal any suspicious findings. There was no leukocytosis, anemia, thrombocytopenia. The patient's coagulation studies were normal. Her urinalysis was negative for signs of infection or blood. Urine test was negative. CMP did not reveal any abnormal renal or hepatic function. There were no abnormal electrolytes noted. Troponin was negative. Urine drug testing was positive for marijuana. Chest x-ray did not reveal any obvious abnormalities. The patient had no tenderness to palpation of the chest wall. The rash seems suspicious for findings similar to stretch fabian on the abdomen and hip, however I did encourage follow-up with dermatology. I suspect a muscular etiology of the patient's symptoms. I did discuss with her the possibility that her symptoms could be related to the pulmonary emboli. The patient verbalized agreement and understanding. Her symptoms did significantly improve with Lidoderm. We did discuss discharge instructions and all questions were answered to the patient's satisfaction. Prior to discharge, the patient states she began experiencing some dizziness, and "feeling woozy". The patient states symptoms began suddenly, then reports she has been experiencing similar symptoms for several months intermittently associated with memory lapses. She states she does not remember what has been happening, and forcefully questions her boyfriend to explain what has been going on. He states she has seen psychiatry who suspects her history of PTSD and anxiety/depression are the causes of her symptoms. The patient states she does not feel that he is qualified to make that assumption, and states she feels concerned due to the symptoms, rash, and now this woozy, dizzy feeling and feels that she may have a brain bleed. She states her mother presented with similar symptoms and ended up experiencing an intracranial hemorrhage spontaneously at one-point. I did discuss the benefits versus risks associated with performing a CT scan. The patient verbalized all understanding and states she prefers to proceed with the scan. She does request a serum test, as she does not believe that the urine tests are very accurate. This was negative. The CT scan was negative for acute findings. I still believe the patient's symptoms are highly related to her psychological conditions. I suspect anxiety is contributing to her worsening pain, wooziness , dizziness, and overall not feeling well. The patient is very frustrated with her outpatient care providers, and feels that they are not listening to her. I spent a significant amount of time talking with the patient and researched providers through [employer] to recommend to her for second opinions, as she is not feeling happy with her current care. The patient verbalized agreement, and is happy with her care here in the emergency department. She will follow up closely outpatient and contact the providers recommended to her. Etiologies such as cardiac ischemia, aortic dissection, pulmonary embolism, pneumonia, pneumothorax, musculoskeletal, infections, gastrointestinal, anxiety , migraine, tumor, headache, sinus thrombosis, temporal arteritis, sinusitis, CVA, ICH, SAH, as well as others were entertained. The chart was completed utilizing [employer] Speech voice recognition software. Grammatical errors, random word insertions, pronoun errors, and incomplete sentences are an occasional consequence of this system due to software limitations, ambient noise, and hardware issues. Any formal questions or concerns about the content, text, or information contained within the body of this dictation should be directly addressed to the provider for clarification. Medication Reconcilliation Current Medication List: was personally reviewed by me Blood Pressure Screening Patient's blood pressure: Normal blood pressure Impression Primary Impression: Chest wall pain Additional Impressions: Dizziness Drug use Rash and nonspecific skin eruption Departure Information Dispostion Home / Self-Care Condition GOOD Prescriptions Lidocaine (LIDOCAINE) 5 % Pad 1 PATCH TD QD Y for Pain, #30 PATCH Patch must be removed from skin after 12 hours, and left off for 12 hours prior to new patch application Prov: Nelia Marquis PA-C 02/22/18 Referrals Supa Rush MD (PCP) Joy Whitaker MD Wolfe, David W., M.D. Patient Instructions ED Chest Pain Costochondritis, My [facility] Additional Instructions You were seen in the emergency department today for noncardiac chest pain. I do suspect a muscular etiology of your illness. As discussed, imaging, labs, and EKG did rule out more concerning etiology of your illness. CT scan of your head/brain did not detect any acute hemorrhage or other abnormal findings at this time. I do recommend you continue to work with your PCP regarding ongoing evaluation of your symptoms. Use Lidoderm patches as directed for pain. You may apply only 1 patch in 24 hours. The patch may only be applied to skin for 12 hours maximum. Acetaminophen(Tylenol) may be used for fever or pain. Use 1000mg every six hours as needed. Avoid using more than 3000mg in a 24 hour period. Follow-up with your primary care provider regarding further management of your complaints. You were provided with contact information for a different medication care manager and packer regarding your other concerns. Return to the emergency department for any worsening chest pain, dyspnea, syncope, or other concerning symptoms. Problem Qualifiers
--- NOTE | 2018-02-22 11:57 | DIAGNOSTIC IMAGING REPORT ---
HEAD WITHOUT CONTRAST (CT) CLINICAL HISTORY: 23 years-old Female with memory lapse, dizziness. Acute dizziness with memory loss TECHNIQUE: Multiple axial CT images of the head were obtained without contrast. A dose lowering technique was utilized adhering to the principles of ALARA. CT DOSE: 729.78 mGycm COMPARISON: None. FINDINGS: No acute intracranial hemorrhage, midline shift, intracranial mass, hydrocephalus, territorial ischemia or abnormal extra-axial collection. The calvarium is intact. The paranasal sinuses, mastoid air cells, and middle ear cavities are clear. IMPRESSION: No acute intracranial abnormality. The above report was generated using voice recognition software. It may contain grammatical, syntax or spelling errors. Electronically signed by: Ramiro Acosta M.D. 02/22/2018 11:55 AM Dictated Date/Time: 02/22/2018 11:53 AM
[2018-02-22 12:45] VITALS: BP 136/68; PULSE 83; O2SAT 99
== END 2018-02-22 12:55 | disposition home or self-care (01) ==
LOC: C.EDB 08:07
DX: R07.89 Other chest pain (principal); R42 Dizziness and giddiness; R21 Rash and other nonspecific skin eruption; F19.90 Other psychoactive substance use, unspecified, uncomplicated; Z79.01 Long term (current) use of anticoagulants; Z86.711 Personal history of pulmonary embolism; F12.90 Cannabis use, unspecified, uncomplicated; F41.9 Anxiety disorder, unspecified; F43.10 Post-traumatic stress disorder, unspecified; J45.909 Unspecified asthma, uncomplicated; E03.9 Hypothyroidism, unspecified; F17.210 Nicotine dependence, cigarettes, uncomplicated; Z79.899 Other long term (current) drug therapy